=== PATIENT | male | born 1985 | race Caucasian/White ===

== ENCOUNTER 2023-08-04 11:46 | Emergency (ER) | payer MEDICAID ==
[~2023-08-04] VITALS: Ht 170.2 cm; Wt 70.0 kg
[2023-08-04 11:51] VITALS: TEMP 98.6; O2SAT 98
[2023-08-04] MEDS ORDERED: KETOROLAC 60MG/2ML VIAL IM ONE (12:15)
[2023-08-04] MEDS ORDERED: HYDROCODONE/ACETAMINOPHEN 5/325MG TABLET PO ONE (12:15)
[2023-08-04] MEDS ORDERED: METH-773 MT (13:22)
[2023-08-04] MEDS ORDERED: IBUP-2029 MT (13:22)
[2023-08-04 15:14] VITALS: BP 123/82; PULSE 71; RESP 16
[2023-08-04] MEDS ORDERED: KETOROLAC 60MG/2ML VIAL IM NR (15:14)
[2023-08-04] MEDS ORDERED: HYDROCODONE/ACETAMINOPHEN 5/325MG TABLET PO NR (15:14)
== END 2023-08-04 16:07 | disposition home or self-care (01) ==
LOC: ER 13:26
DX: M54.50 Low back pain, unspecified (principal)
CPT/HCPCS: 99283; 72100; 96372; J1885